=== PATIENT | female | born 1945 | race Caucasian/White ===

== ENCOUNTER 2024-10-23 23:36 | Inpatient (IN) | payer MEDICARE ==
[~2024-10-23] VITALS: Ht 167.6 cm; Wt 84.4 kg
[~2024-10-23 23:36] MED LIST: MONT-46 PO
[2024-10-24] MEDS: ACETAMINOPHEN 650MG SUPP PR STA (00:19)
[2024-10-24] MEDS: ONDANSETRON HCL 4MG/2ML INJ IV STA (00:19)
[2024-10-24] MEDS: SODIUM CHLORIDE 0.9% 1,000 ML IV ONE (00:19)
[2024-10-24] MEDS: PIPERACILLIN/TAZO 3.375G/50ML 50 ML IV ONE (00:19)
[2024-10-24 00:27] LABS: HEMATOCRIT. 37.5 % (36.0-48.0); HEMOGLOBIN. 11.9 g/dL (12.0-16.0); MEAN CORPUSCULAR HEMOGLOBIN 31.1 pg (28.0-32.0); MEAN CORPUSCULAR HGB CONC 31.8 g/dL (31.0-37.0); MEAN CORPUSCULAR VOLUME 97.9 fL (81.0-99.0); MEAN PLATELET VOLUME 7.6 fl (7.4-10.4); PLATELET 212 x1000/uL (130-400); RED BLOOD CELL COUNT 3.83 mill/uL (4.2-5.4); RED CELL DISTRIBUTION WIDTH 14.2 % (11.6-14.6); WHITE BLOOD COUNT 15.8 x1000/uL (4.5-11.0)
[2024-10-24 00:30] LABS: CHLORIDE 102 mEq/L (98-107); POTASSIUM 3.9 mEq/L (3.5-5.1); SODIUM 136 mEq/L (136-145)
[2024-10-24 00:31] LABS: CALCIUM 8.6 mg/dL (8.7-10.4); CARBON DIOXIDE 23 mEq/L (21-32); DIFFERENTIAL COMMENT 1
[2024-10-24 00:36] LABS: CREATININE 0.8 mg/dL (0.6-1.0); GLUCOSE 145 mg/dL (70-105); INR 1.3; PROTHROMBIN TIME 13.2 sec (9.6-11.0); UREA NITROGEN BLOOD 12 mg/dL (9-23)
[2024-10-24 00:37] LABS: TROPONIN I HIGH SENSITIVITY 13 ng/L (3.0-34)
[2024-10-24 00:38] LABS: ALANINE AMINOTRANSFERASE < 7 IU/L (10-49); ALBUMIN 3.7 g/dL (3.2-4.8); ASPARTATE AMINOTRANSFERASE 15 IU/L (<34); BILIRUBIN DIRECT 0.2 mg/dL (<=3.0); BILIRUBIN TOTAL 0.7 mg/dL (0.1-1.0); PROTEIN TOTAL 6.4 g/dL (6.0-8.3)
[2024-10-24 00:45] LABS: LACTIC ACID 2.1 mmol/L (0.4-2.0)
[2024-10-24] MEDS ORDERED: IPRATROPIUM/ALBUTEROL 0.5-3(2.5)MG/3ML NEB HHN PRN (01:45)
[2024-10-24] MEDS ORDERED: ONDANSETRON HCL 4MG/2ML INJ IV PRN (01:45)
[2024-10-24] MEDS ORDERED: CLONIDINE 0.1MG TABLET PO PRN (01:45)
[2024-10-24] MEDS ORDERED: GUAIFENESIN 200MG/10ML SUGAR FREE UDC PO PRN (01:45)
[2024-10-24] MEDS ORDERED: DOCUSATE SODIUM 100MG CAPSULE PO PRN (01:45)
[2024-10-24 02:37] LABS: TROPONIN I HIGH SENSITIVITY 12 ng/L (3.0-34)
[2024-10-24 03:00] VITALS: BP 138/107; PULSE 97; RESP 20; TEMP 36.7; O2SAT 98
[2024-10-24 04:00] VITALS: BP 138/107; PULSE 97; RESP 20; TEMP 36.7; O2SAT 98
[2024-10-24] MEDS: DEXT 5%/0.45% NACL 1000ML 1,000 ML IV SCH (04:16)
[2024-10-24] MEDS: ACETAMINOPHEN 325MG TABLET PO PRN (04:16)
[2024-10-24 05:04] LABS: PLATELET ESTIMATE NORMAL
[2024-10-24] MEDS: CALCIUM GLUCONATE 1GM PREMIX 50 ML IV NR (06:02)
[2024-10-24] MEDS: PIPERACILLIN/TAZO 3.375G/50ML 50 ML IV SCH (06:45)
[2024-10-24 08:00] VITALS: BP 135/72; PULSE 93; RESP 16; TEMP 36.1; O2SAT 96
[2024-10-24] MEDS ORDERED: ENOXAPARIN 40MG/0.4ML SYR SUBCUT SCH (09:00)
[2024-10-24 10:33] LABS: CREATINE KINASE < 15 IU/L (34-145)
[2024-10-24 10:36] LABS: LACTIC ACID 2.1 mmol/L (0.4-2.0)
[2024-10-24 11:25] LABS: CLARITY URINE CLEAR (CLEAR); COLOR URINE YELLOW (YELLOW); GLUCOSE URINE NEGATIVE (NEGATIVE); KETONES URINE 1+ (NEGATIVE); LEUKOCYTE ESTERASE URINE 2+ (NEGATIVE); NITRITE URINE NEGATIVE (NEGATIVE); OCCULT BLOOD URINE NEGATIVE (NEGATIVE); PROTEIN URINE TRACE (NEGATIVE); SPECIFIC GRAVITY URINE 1.021 (1.005-1.030); UROBILINOGEN URINE 0.2 E.U./dL (0.2-1.0)
[2024-10-24 11:35] LABS: BACTERIA URINE 1+; RBC URINE 0-2 /hpf (0-2); SQUAMOUS EPITHELIAL CELL URINE 1+ /lpf (RARE/1+); YEAST URINE NONE SEEN
[2024-10-24 11:59] LABS: *AMPHETAMINES SCREEN URINE NEGATIVE (NEGATIVE); *BARBITURATES SCREEN URINE NEGATIVE (NEGATIVE); *BENZODIAZEPINES SCREEN URINE PRESUMPTIVE POSITIVE (NEGATIVE); *COCAINE SCREEN URINE NEGATIVE (NEGATIVE); METHADONE URINE SCREEN NEGATIVE (NEGATIVE); OPIATES URINE SCREEN PRESUMPTIVE POSITIVE (NEGATIVE); PHENCYCLIDINE URINE SCREEN NEGATIVE (NEGATIVE)
[2024-10-24 12:00] VITALS: BP 124/69; PULSE 87; RESP 17; TEMP 36.3; O2SAT 98
[2024-10-24 12:00] LABS: CANNABINOID URINE SCREEN NEGATIVE (NEGATIVE); ECSTASY MDMA SCREEN URINE NEGATIVE (NEGATIVE)
[2024-10-24] MEDS: ASPIRIN 81MG TABLET PO SCH (13:30)
[2024-10-24 15:55] LABS: INFLUENZA TYPE A Presumptive Negative (Pres. Neg.)
[2024-10-24 15:56] LABS: INFLUENZA TYPE B Presumptive Negative (Pres. Neg.)
[2024-10-24 16:00] VITALS: BP 118/67; PULSE 74; RESP 16; TEMP 36.3; O2SAT 98
[2024-10-24 16:34] LABS: CREATINE KINASE < 15 IU/L (34-145)
[2024-10-24] MEDS ORDERED: NALOXONE HCL 0.4MG/ML VIAL IV PRN (17:00)
[2024-10-24] MEDS: HYDROCODONE/ACETAMINOPHEN 10/325MG TABLET PO PRN (18:27)
[2024-10-24] MEDS: RIVAROXABAN 20 MG TABLET PO SCH (18:27)
[2024-10-24] MEDS: PANTOPRAZOLE SODIUM 40 MG/VIAL IV SCH (18:27)
[2024-10-24] MEDS: MENTHOL/LANOLIN/CALAMINE/ZN OX OINT 71GM TOP SCH (18:27)
[2024-10-24 20:00] VITALS: BP 104/72; PULSE 83; RESP 19; TEMP 36.7; O2SAT 98
[2024-10-24] MEDS: SULFAMETHOXAZOLE/TRIMETHOPRIM 800/160MG TABLET PO SCH (20:47)
[2024-10-24] MEDS: METOPROLOL TARTRATE 25MG TABLET PO SCH (20:48)
[2024-10-25] VITALS: BP 138/69; PULSE 93; RESP 19; TEMP 36.8; O2SAT 98
[2024-10-25] MEDS ORDERED: DIGO125T2 PO (03:09)
[2024-10-25] MEDS ORDERED: RIVA20TA PO (03:09)
[2024-10-25] MEDS ORDERED: MESA400C3 PO (03:09)
[2024-10-25] MEDS ORDERED: HYDR-4009 PO (03:09)
[2024-10-25 04:00] VITALS: BP 138/78; PULSE 91; RESP 19; TEMP 36.6; O2SAT 98
[2024-10-25 07:21] LABS: CALCIUM 8.6 mg/dL (8.7-10.4); CARBON DIOXIDE 28 mEq/L (21-32); CHLORIDE 99 mEq/L (98-107); POTASSIUM 3.5 mEq/L (3.5-5.1); SODIUM 136 mEq/L (136-145)
[2024-10-25 07:26] LABS: CREATININE 0.7 mg/dL (0.6-1.0)
[2024-10-25 07:27] LABS: GLUCOSE 91 mg/dL (70-105); TRIGLYCERIDE 142 mg/dL (0-150); UREA NITROGEN BLOOD 13 mg/dL (9-23)
[2024-10-25 07:28] LABS: LDL CHOLESTEROL 130 mg/dL (5-100)
[2024-10-25 07:29] LABS: CHOLESTEROL 193 mg/dL (<200); HDL CHOLESTEROL 28 mg/dL (>65); THYROID STIMULATING HORMONE 5.36 uIU/mL (0.55-4.78)
[2024-10-25 07:39] LABS: BASOPHILS % 0.3 % (0.0-2.0); EOSINOPHILS % 0.5 % (0.0-5.0); HEMATOCRIT. 35.7 % (36.0-48.0); HEMOGLOBIN. 11.6 g/dL (12.0-16.0); LYMPHOCYTES % 21.1 % (20.0-50.0); MEAN CORPUSCULAR HEMOGLOBIN 31.7 pg (28.0-32.0); MEAN CORPUSCULAR HGB CONC 32.4 g/dL (31.0-37.0); MEAN CORPUSCULAR VOLUME 97.6 fL (81.0-99.0); MEAN PLATELET VOLUME 7.8 fl (7.4-10.4); MONOCYTES % 11.9 % (2.0-8.0); NEUTROPHILS % 66.2 % (40.0-76.0); PLATELET 188 x1000/uL (130-400); RED BLOOD CELL COUNT 3.65 mill/uL (4.2-5.4); RED CELL DISTRIBUTION WIDTH 14.3 % (11.6-14.6); WHITE BLOOD COUNT 9.5 x1000/uL (4.5-11.0)
[2024-10-25 08:00] VITALS: BP 116/76; PULSE 89; RESP 16; TEMP 36.3; O2SAT 98
[2024-10-25] MEDS: HYDROCODONE/ACETAMINOPHEN 10/325MG TABLET PO NR (09:35)
[2024-10-25 12:00] VITALS: BP 132/75; PULSE 84; RESP 18; TEMP 36.2; O2SAT 98
[2024-10-25 13:53] LABS: PHOSPHORUS 2.4 mg/dL (2.5-4.9)
[2024-10-25 13:55] LABS: T4 FREE 1.06 ng/dL (0.89-1.76)
[2024-10-25 16:00] VITALS: BP 131/80; PULSE 90; RESP 16; TEMP 36.2; O2SAT 98
[2024-10-25 20:00] VITALS: BP 107/77; PULSE 87; RESP 19; TEMP 36.1; O2SAT 98
[2024-10-25] MEDS: MAGNESIUM 2 G PREMIX 50 ML IV NR (20:58)
[2024-10-25] MEDS ORDERED: SALMETEROL 50 MCG/INH 28 BLIST DISKUS INHR ORI SCH (21:00)
[2024-10-25] MEDS: FLUTICASONE PROPIONATE 50MCG/SPRAY BOTTLE BOTHNSTRLS SCH (21:00)
[2024-10-25] MEDS: SODIUM PHOSPHATE 15 MMOL in DEXT 5% WATER 245 ML IV NR (22:31)
[2024-10-26] VITALS: BP 152/82; PULSE 81; RESP 18; TEMP 36.1; O2SAT 98
[2024-10-26 04:00] VITALS: BP 159/72; PULSE 86; RESP 18; TEMP 36; O2SAT 96
[2024-10-26 08:00] VITALS: BP 165/88; PULSE 114; RESP 15; TEMP 36.3; O2SAT 96
[2024-10-26 08:00] LABS: BASOPHILS % 0.8 % (0.0-2.0); EOSINOPHILS % 2.8 % (0.0-5.0); HEMATOCRIT. 35.5 % (36.0-48.0); HEMOGLOBIN. 11.4 g/dL (12.0-16.0); MEAN CORPUSCULAR HEMOGLOBIN 31.7 pg (28.0-32.0); MEAN CORPUSCULAR HGB CONC 32.2 g/dL (31.0-37.0); MEAN CORPUSCULAR VOLUME 98.4 fL (81.0-99.0); MEAN PLATELET VOLUME 7.9 fl (7.4-10.4); MONOCYTES % 10.3 % (2.0-8.0); NEUTROPHILS % 54.1 % (40.0-76.0); PLATELET 211 x1000/uL (130-400); RED CELL DISTRIBUTION WIDTH 14.4 % (11.6-14.6); WHITE BLOOD COUNT 6.4 x1000/uL (4.5-11.0)
[2024-10-26 08:04] LABS: CALCIUM 8.5 mg/dL (8.7-10.4); CARBON DIOXIDE 27 mEq/L (21-32); CHLORIDE 99 mEq/L (98-107); POTASSIUM 3.4 mEq/L (3.5-5.1); SODIUM 138 mEq/L (136-145)
[2024-10-26 08:09] LABS: CREATININE 0.9 mg/dL (0.6-1.0); GLUCOSE 77 mg/dL (70-105); UREA NITROGEN BLOOD 12 mg/dL (9-23)
[2024-10-26 12:00] VITALS: BP 150/69; PULSE 83; RESP 18; TEMP 36.6; O2SAT 100
[2024-10-26 16:00] VITALS: BP 133/84; PULSE 91; RESP 17; TEMP 36.2; O2SAT 93
[2024-10-26 20:00] VITALS: BP 133/69; PULSE 64; RESP 18; TEMP 36.2; O2SAT 95
[2024-10-27] VITALS: BP 143/89; PULSE 81; RESP 19; TEMP 35.9; O2SAT 97
[2024-10-27 04:00] VITALS: BP 137/75; PULSE 73; RESP 16; TEMP 35.8; O2SAT 97
[2024-10-27 08:00] VITALS: BP 124/56; PULSE 92; RESP 15; TEMP 36.4; O2SAT 97
[2024-10-27 12:00] VITALS: BP 125/69; PULSE 91; RESP 17; TEMP 35.9; O2SAT 96
[2024-10-27] MEDS: POTASSIUM CHLORIDE 20MEQ TABLET SR PO NR (15:23)
[2024-10-27 16:00] VITALS: BP 126/67; PULSE 90; RESP 17; TEMP 35.9; O2SAT 98
[2024-10-27 20:00] VITALS: BP 105/78; PULSE 61; RESP 19; TEMP 36.1; O2SAT 96
[2024-10-27] MEDS: ATORVASTATIN CALCIUM 20MG TABLET PO SCH (21:30)
[2024-10-28] VITALS (8 sets, daily range): BP systolic 110–166; BP diastolic 54–93; PULSE 70–119; RESP 16–18; TEMP 35.8–36.3; O2SAT 96–100
[2024-10-28] MEDS: ALBUTEROL (0.083%) 2.5MG/3ML NEB HHN SCH (21:59)
[2024-10-29] VITALS: BP 154/77; PULSE 76; RESP 18; TEMP 36.8; O2SAT 99
[2024-10-29 04:00] VITALS: BP 134/82; PULSE 74; RESP 18; TEMP 36.3; O2SAT 98
[2024-10-29 08:00] VITALS: BP_SYST 136; BP_DIAS 64; BP_DIAS 69; PULSE 76; PULSE 80; RESP 18; RESP 19; TEMP 36.4; TEMP 36.5; O2SAT 96; O2SAT 97
[2024-10-29 12:00] VITALS: BP_SYST 137; BP_DIAS 78; BP_DIAS 82; PULSE 103; RESP 18; TEMP 36.5; O2SAT 99
[2024-10-29 16:00] VITALS: BP 129/85; PULSE 97; RESP 18; TEMP 36.6; O2SAT 98
[2024-10-29 16:20] VITALS: BP 129/85; PULSE 97; TEMP 97.8; O2SAT 98
== END 2024-10-29 18:45 | disposition home health service (06) | DRG 871 ==
LOC: ER 23:36 → 6WST 10-24 01:01 → ENRESERV 10-24 01:26
PROVIDERS: ADMIT Hospitalist; ATTEND Hospitalist
DX: A41.9 Sepsis, unspecified organism (principal); G93.41 Metabolic encephalopathy; J18.9 Pneumonia, unspecified organism; E87.20 Acidosis, unspecified; I50.32 Chronic diastolic (congestive) heart failure; I48.20 Chronic atrial fibrillation, unspecified; N39.0 Urinary tract infection, site not specified; E11.65 Type 2 diabetes mellitus with hyperglycemia; L89.159 Pressure ulcer of sacral region, unspecified stage; E83.51 Hypocalcemia; L89.219 Pressure ulcer of right hip, unspecified stage; Z74.01 Bed confinement status; I11.0 Hypertensive heart disease with heart failure; I36.1 Nonrheumatic tricuspid (valve) insufficiency; F03.90 Unspecified dementia, unspecified severity, without behavioral disturbance, psychotic disturbance, mood disturbance, and anxiety; J45.909 Unspecified asthma, uncomplicated; E78.00 Pure hypercholesterolemia, unspecified; E03.8 Other specified hypothyroidism; S90.221A Contusion of right lesser toe(s) with damage to nail, initial encounter; X58.XXXA Exposure to other specified factors, initial encounter; Y93.89 Activity, other specified; Y92.89 Other specified places as the place of occurrence of the external cause; Y99.8 Other external cause status; Z88.1 Allergy status to other antibiotic agents; Z79.01 Long term (current) use of anticoagulants; Z88.8 Allergy status to other drugs, medicaments and biological substances; Z79.899 Other long term (current) drug therapy; Z91.148 Patient's other noncompliance with medication regimen for other reason; Z88.5 Allergy status to narcotic agent
CPT/HCPCS: 36415; 71045; 80048; 80061; 80076; 80305; 81003; 82550; 83036; 83605; 83735; 83880; 84100; 84145; 84439; 84443; 84484; 85025; 85379; 87070; 87077; 87186; 87804; 93005; 93306; 93970; 94070; 94640; 94664; 94760; 97162; 97166; 98960; 99291; J0610; J1650; J2405; J2470; J2543; J3475; J3490; J7030; J7060